=== PATIENT | female | born 1940 | race Two or more races ===

== ENCOUNTER → 2017-05-13 | Outpatient (CLI) | payer MEDICAID ==
[~2017-05-13] VITALS: Ht 157.5 cm; Wt 85.3 kg
[~2017-05-13] MED LIST: ADENOSINE 72 MG in GIVE UN-DILUTED 0 ML IV ONE; ADENOSINE 90 MG/30 ML INJ IV ONE
== END | disposition home or self-care (01) ==
LOC: Rad HDHVI 09:01
PROVIDERS: ATTEND Internal Medicine Cardiovascular Disease
DX: I10 Essential (primary) hypertension (principal); E11.9 Type 2 diabetes mellitus without complications; E78.00 Pure hypercholesterolemia, unspecified
CPT/HCPCS: 78452; 93005; 93306; 96374; 96375; A9500; J0153